=== PATIENT | male | born 1935 | race Caucasian/White ===

== ENCOUNTER 2023-05-04 14:56 | Inpatient (IN) | payer MEDICARE ==
[2023-05-04 15:33] LABS: #Basophils 0.1 thou/uL (0.0-0.2); #Eosinphils 0.2 thou/uL (0.0-0.7); #Monocytes 0.8 thou/uL (0.11-0.59); #Neutrophils 7.6 thou/uL (1.40-6.50); %Basophils 0.6 % (0.0-1.0); %Eosinophils 1.6 % (0.0-10.0); %Lymphocytes 7.9 % (21.0-51.0); %Monocytes 8.7 % (0.0-10.0); Hematocrit 36.3 % (42.0-52.0); Hemoglobin 11.3 g/dL (14.0-18.0); Mean Corpuscular HGB CONC 31.1 g/dL (32.0-36.0); Mean Corpuscular Hemoglobin 29.3 pg (27.0-31.0); Mean Platelet Volume 11.1 fL (7.4-10.4); Platelet Count 273 10x3/uL (130-400); RBC Distribution Width 16.3 % (11.5-14.5); Red Blood Cell (RBC) Count 3.86 mill/uL (4.70-6.10); White Blood Cell (WBC) Count 9.4 10x3/uL (4.8-10.8)
[2023-05-04 15:46] LABS: INR-International Normal Ratio 1.4; PTT 32.3 sec (22.9-36.1); Prothrombin Time 18.1 sec (12.0-14.7)
[2023-05-04 16:00] LABS: ALT (SGPT) 13 U/L (8-55); AST (SGOT) 19 U/L (5-34); Albumin 3.5 g/dL (3.4-4.8); Alkaline Phosphatase 123 U/L (40-110); Anion Gap 14 mmol/L (10-20); BUN (Urea Nitrogen) 59 mg/dL (8.4-25.7); Bilirubin, Total 0.4 mg/dL (0.2-1.2); Calc. Creatinine Clearance 0 mL/min (70-130); Calcium 9.6 mg/dL (7.8-10.44); Carbon Dioxide 31 mmol/L (23-31); Chloride 93 mmol/L (98-107); Estimated GFR 31; Globulin 2.8 g/dL (2.4-3.5); Glucose 190 mg/dL (83-110); Potassium 4.3 mmol/L (3.5-5.1); Protein, Total 6.3 g/dL (5.8-8.1); Sodium 134 mmol/L (136-145)
[2023-05-04 16:05] LABS: Troponin I 0.118 ng/mL (< 0.028)
[2023-05-04] MEDS ORDERED: Ondansetron ODT 4 MG TAB PO PRN (17:38)
[2023-05-04] MEDS ORDERED: Acetaminophen 325 MG TAB PO PRN (17:38)
[2023-05-04] MEDS ORDERED: Polyethylene Glycol 3350 17 GM Packet PO PRN (17:45)
[2023-05-04] MEDS ORDERED: Lidocaine 4% Patch TD PRN (18:00)
[2023-05-04] MEDS ORDERED: Melatonin 3 MG TAB PO PRN (18:00)
[2023-05-04 18:53] LABS: Troponin I 0.131 ng/mL (< 0.028)
[2023-05-04] MEDS: Tamsulosin HCl 0.4 MG CAP PO SCH (21:17)
[2023-05-04] MEDS: traZODone HCl 50 MG TAB PO SCH (21:18)
[2023-05-04] MEDS: Flecainide 50 MG TAB PO SCH (21:18)
[2023-05-04] MEDS: Apixaban 2.5 MG TAB PO SCH (21:18)
[2023-05-04] MEDS: Senokot S 8.6-50 MG TAB PO PRN (21:19)
[2023-05-04] MEDS: Sodium Chloride 0.9% 1,000 ML IV SCH (21:19)
[2023-05-04] MEDS: Acetaminophen/Codeine 30-300mg Tablet PO PRN (21:21)
[2023-05-04] MEDS: Acetaminophen 325 MG TAB PO SCH (21:21)
[2023-05-04 22:08] VITALS: BMI 25.9
[2023-05-05 01:12] LABS: Troponin I 0.151 ng/mL (< 0.028)
[2023-05-05] MEDS: Sodium Chloride 0.9% 1,000 ML IV SCH ×2 (02:00→05:42)
[2023-05-05 05:00] LABS: #Basophils 0.1 thou/uL (0.0-0.2); #Eosinphils 0.3 thou/uL (0.0-0.7); #Monocytes 0.8 thou/uL (0.11-0.59); #Neutrophils 6.3 thou/uL (1.40-6.50); %Basophils 0.6 % (0.0-1.0); %Eosinophils 3.4 % (0.0-10.0); %Lymphocytes 9.5 % (21.0-51.0); %Monocytes 9.6 % (0.0-10.0); %Neutrophils 76.7 % (42.0-75.0); Hematocrit 34.1 % (42.0-52.0); Hemoglobin 10.6 g/dL (14.0-18.0); Mean Corpuscular HGB CONC 31.1 g/dL (32.0-36.0); Mean Corpuscular Hemoglobin 29.3 pg (27.0-31.0); Mean Corpuscular Volume 94.2 fl (78.0-98.0); Mean Platelet Volume 11.3 fL (7.4-10.4); Platelet Count 260 10x3/uL (130-400); RBC Distribution Width 16.2 % (11.5-14.5); Red Blood Cell (RBC) Count 3.62 mill/uL (4.70-6.10); White Blood Cell (WBC) Count 8.2 10x3/uL (4.8-10.8)
[2023-05-05 05:10] LABS: ALT (SGPT) 10 U/L (8-55); AST (SGOT) 17 U/L (5-34); Alkaline Phosphatase 107 U/L (40-110); Anion Gap 16 mmol/L (10-20); BUN (Urea Nitrogen) 54 mg/dL (8.4-25.7); Bilirubin, Total 0.4 mg/dL (0.2-1.2); Calc. Creatinine Clearance 38 mL/min (70-130); Calcium 9.5 mg/dL (7.8-10.44); Carbon Dioxide 28 mmol/L (23-31); Chloride 95 mmol/L (98-107); Estimated GFR 38; Globulin 2.9 g/dL (2.4-3.5); Glucose 107 mg/dL (83-110); Potassium 3.5 mmol/L (3.5-5.1); Protein, Total 5.9 g/dL (5.8-8.1); Sodium 135 mmol/L (136-145)
[2023-05-05 05:21] LABS: Troponin I 0.135 ng/mL (< 0.028)
[2023-05-05] MEDS: Levothyroxine Sodium 25 MCG TAB PO SCH (05:43)
[2023-05-05] MEDS: Acetaminophen/Codeine 30-300mg Tablet PO PRN (05:43)
[2023-05-05] MEDS: Acetaminophen 325 MG TAB PO SCH ×3 (05:44→20:54)
[2023-05-05] MEDS ORDERED: Transdermal Patch Removal TOP PRN (06:00)
[2023-05-05] MEDS: Allopurinol 300 MG TAB PO SCH (08:59)
[2023-05-05] MEDS: Atorvastatin Calcium 40 MG TAB PO SCH (08:59)
[2023-05-05] MEDS: Flecainide 50 MG TAB PO SCH ×2 (08:59→20:54)
[2023-05-05] MEDS: Carvedilol 3.125 MG TAB PO SCH ×2 (08:59→16:43)
[2023-05-05] MEDS: Apixaban 2.5 MG TAB PO SCH ×2 (08:59→20:54)
[2023-05-05] MEDS: Tamsulosin HCl 0.4 MG CAP PO SCH (20:54)
[2023-05-05] MEDS: traZODone HCl 50 MG TAB PO SCH (20:54)
[2023-05-06 04:41] LABS: #Basophils 0.1 thou/uL (0.0-0.2); #Eosinphils 0.5 thou/uL (0.0-0.7); #Monocytes 0.8 thou/uL (0.11-0.59); #Neutrophils 5.3 thou/uL (1.40-6.50); %Basophils 0.8 % (0.0-1.0); %Lymphocytes 10.6 % (21.0-51.0); %Neutrophils 71.3 % (42.0-75.0); Hematocrit 33.6 % (42.0-52.0); Hemoglobin 10.4 g/dL (14.0-18.0); Mean Corpuscular Hemoglobin 29.1 pg (27.0-31.0); Mean Corpuscular Volume 93.9 fl (78.0-98.0); Mean Platelet Volume 11.5 fL (7.4-10.4); Platelet Count 255 10x3/uL (130-400); RBC Distribution Width 16.4 % (11.5-14.5); Red Blood Cell (RBC) Count 3.58 mill/uL (4.70-6.10); White Blood Cell (WBC) Count 7.5 10x3/uL (4.8-10.8)
[2023-05-06 05:05] LABS: ALT (SGPT) 10 U/L (8-55); AST (SGOT) 20 U/L (5-34); Albumin 2.9 g/dL (3.4-4.8); Alkaline Phosphatase 105 U/L (40-110); Anion Gap 13 mmol/L (10-20); BUN (Urea Nitrogen) 52 mg/dL (8.4-25.7); Bilirubin, Total 0.4 mg/dL (0.2-1.2); Calc. Creatinine Clearance 37 mL/min (70-130); Calcium 9.4 mg/dL (7.8-10.44); Carbon Dioxide 29 mmol/L (23-31); Chloride 96 mmol/L (98-107); Estimated GFR 36; Globulin 2.9 g/dL (2.4-3.5); Glucose 116 mg/dL (83-110); Potassium 3.8 mmol/L (3.5-5.1); Protein, Total 5.8 g/dL (5.8-8.1); Sodium 134 mmol/L (136-145)
[2023-05-06] MEDS: Acetaminophen 325 MG TAB PO SCH ×3 (05:28→20:32)
[2023-05-06] MEDS: Levothyroxine Sodium 25 MCG TAB PO SCH (05:28)
[2023-05-06] MEDS: Carvedilol 3.125 MG TAB PO SCH ×2 (08:22→17:08)
[2023-05-06] MEDS: Allopurinol 300 MG TAB PO SCH (08:22)
[2023-05-06] MEDS: Flecainide 50 MG TAB PO SCH ×2 (08:22→20:32)
[2023-05-06] MEDS: Atorvastatin Calcium 40 MG TAB PO SCH (08:22)
[2023-05-06] MEDS: Apixaban 2.5 MG TAB PO SCH ×2 (08:22→20:32)
[2023-05-06] MEDS: Acetaminophen/Codeine 30-300mg Tablet PO PRN ×2 (08:26→15:28)
[2023-05-06] MEDS: Senokot S 8.6-50 MG TAB PO PRN (08:26)
[2023-05-06] MEDS: Tamsulosin HCl 0.4 MG CAP PO SCH (20:32)
[2023-05-06] MEDS: traZODone HCl 50 MG TAB PO SCH (20:32)
[2023-05-06] MEDS: Senokot S 8.6-50 MG TAB PO SCH (20:32)
[2023-05-07 05:03] LABS: #Basophils 0.1 thou/uL (0.0-0.2); #Eosinphils 0.5 thou/uL (0.0-0.7); #Monocytes 0.8 thou/uL (0.11-0.59); #Neutrophils 4.9 thou/uL (1.40-6.50); %Basophils 0.8 % (0.0-1.0); %Eosinophils 6.3 % (0.0-10.0); %Lymphocytes 11.8 % (21.0-51.0); %Monocytes 11.6 % (0.0-10.0); %Neutrophils 69.1 % (42.0-75.0); Hematocrit 34.2 % (42.0-52.0); Hemoglobin 10.7 g/dL (14.0-18.0); Mean Corpuscular HGB CONC 31.3 g/dL (32.0-36.0); Mean Corpuscular Hemoglobin 29.2 pg (27.0-31.0); Mean Corpuscular Volume 93.2 fl (78.0-98.0); Mean Platelet Volume 11.8 fL (7.4-10.4); Platelet Count 253 10x3/uL (130-400); RBC Distribution Width 16.5 % (11.5-14.5); Red Blood Cell (RBC) Count 3.67 mill/uL (4.70-6.10); White Blood Cell (WBC) Count 7.1 10x3/uL (4.8-10.8)
[2023-05-07] MEDS: Acetaminophen 325 MG TAB PO SCH ×3 (05:12→21:31)
[2023-05-07] MEDS: Levothyroxine Sodium 25 MCG TAB PO SCH (05:12)
[2023-05-07 05:23] LABS: ALT (SGPT) 11 U/L (8-55); AST (SGOT) 18 U/L (5-34); Albumin 3.1 g/dL (3.4-4.8); Alkaline Phosphatase 109 U/L (40-110); Anion Gap 11 mmol/L (10-20); BUN (Urea Nitrogen) 49 mg/dL (8.4-25.7); Bilirubin, Total 0.3 mg/dL (0.2-1.2); Calc. Creatinine Clearance 31 mL/min (70-130); Calcium 9.7 mg/dL (7.8-10.44); Carbon Dioxide 32 mmol/L (23-31); Chloride 97 mmol/L (98-107); Estimated GFR 30; Globulin 2.9 g/dL (2.4-3.5); Glucose 122 mg/dL (83-110); Sodium 136 mmol/L (136-145)
[2023-05-07] MEDS ORDERED: Lactated Ringer's 500 ML IV SCH (10:00)
[2023-05-07] MEDS: Flecainide 50 MG TAB PO SCH ×2 (10:03→21:31)
[2023-05-07] MEDS: Carvedilol 3.125 MG TAB PO SCH ×2 (10:03→17:56)
[2023-05-07] MEDS: Allopurinol 300 MG TAB PO SCH (10:04)
[2023-05-07] MEDS: Atorvastatin Calcium 40 MG TAB PO SCH (10:04)
[2023-05-07] MEDS: Polyethylene Glycol 3350 17 GM Packet PO SCH (10:04)
[2023-05-07] MEDS: Apixaban 2.5 MG TAB PO SCH ×2 (10:04→21:31)
[2023-05-07] MEDS: Senokot S 8.6-50 MG TAB PO SCH ×2 (10:04→21:31)
[2023-05-07] MEDS: traZODone HCl 50 MG TAB PO SCH (21:31)
[2023-05-07] MEDS: Tamsulosin HCl 0.4 MG CAP PO SCH (21:31)
[2023-05-08 04:10] LABS: #Basophils 0.1 thou/uL (0.0-0.2); #Eosinphils 0.4 thou/uL (0.0-0.7); #Monocytes 0.9 thou/uL (0.11-0.59); #Neutrophils 5.8 thou/uL (1.40-6.50); %Basophils 0.6 % (0.0-1.0); %Eosinophils 4.6 % (0.0-10.0); %Lymphocytes 10.4 % (21.0-51.0); Hematocrit 32.6 % (42.0-52.0); Hemoglobin 10.3 g/dL (14.0-18.0); Mean Corpuscular HGB CONC 31.6 g/dL (32.0-36.0); Mean Corpuscular Hemoglobin 29.5 pg (27.0-31.0); Mean Corpuscular Volume 93.4 fl (78.0-98.0); Mean Platelet Volume 11.6 fL (7.4-10.4); Platelet Count 268 10x3/uL (130-400); RBC Distribution Width 16.6 % (11.5-14.5); Red Blood Cell (RBC) Count 3.49 mill/uL (4.70-6.10)
[2023-05-08 04:33] LABS: ALT (SGPT) 10 U/L (8-55); AST (SGOT) 19 U/L (5-34); Albumin 2.8 g/dL (3.4-4.8); Alkaline Phosphatase 108 U/L (40-110); Anion Gap 11 mmol/L (10-20); BUN (Urea Nitrogen) 50 mg/dL (8.4-25.7); Bilirubin, Total 0.3 mg/dL (0.2-1.2); Calc. Creatinine Clearance 39 mL/min (70-130); Calcium 9.7 mg/dL (7.8-10.44); Carbon Dioxide 32 mmol/L (23-31); Chloride 96 mmol/L (98-107); Estimated GFR 40; Globulin 2.9 g/dL (2.4-3.5); Glucose 142 mg/dL (83-110); Potassium 4.2 mmol/L (3.5-5.1); Protein, Total 5.7 g/dL (5.8-8.1); Sodium 135 mmol/L (136-145)
[2023-05-08] MEDS: Acetaminophen 325 MG TAB PO SCH ×3 (05:29→22:47)
[2023-05-08] MEDS: Levothyroxine Sodium 25 MCG TAB PO SCH (05:29)
[2023-05-08] MEDS: Carvedilol 3.125 MG TAB PO SCH ×2 (10:19→17:18)
[2023-05-08] MEDS: Flecainide 50 MG TAB PO SCH ×2 (10:19→20:52)
[2023-05-08] MEDS: Atorvastatin Calcium 40 MG TAB PO SCH (10:20)
[2023-05-08] MEDS: Polyethylene Glycol 3350 17 GM Packet PO SCH (10:20)
[2023-05-08] MEDS: Senokot S 8.6-50 MG TAB PO SCH ×2 (10:20→20:53)
[2023-05-08] MEDS: Apixaban 2.5 MG TAB PO SCH ×2 (10:20→20:53)
[2023-05-08] MEDS: Acetaminophen/Codeine 30-300mg Tablet PO PRN ×2 (14:59→20:52)
[2023-05-08] MEDS: traZODone HCl 50 MG TAB PO SCH (20:52)
[2023-05-08] MEDS: Tamsulosin HCl 0.4 MG CAP PO SCH (20:53)
[2023-05-09] MEDS: Acetaminophen/Codeine 30-300mg Tablet PO PRN ×3 (03:12→20:15)
[2023-05-09 04:08] LABS: #Basophils 0.1 thou/uL (0.0-0.2); #Eosinphils 0.4 thou/uL (0.0-0.7); #Monocytes 0.9 thou/uL (0.11-0.59); #Neutrophils 5.8 thou/uL (1.40-6.50); %Basophils 0.9 % (0.0-1.0); %Eosinophils 5.3 % (0.0-10.0); %Lymphocytes 9.3 % (21.0-51.0); %Monocytes 10.8 % (0.0-10.0); %Neutrophils 73.4 % (42.0-75.0); Hemoglobin 10.2 g/dL (14.0-18.0); Mean Corpuscular HGB CONC 30.9 g/dL (32.0-36.0); Mean Corpuscular Hemoglobin 28.7 pg (27.0-31.0); Mean Corpuscular Volume 92.7 fl (78.0-98.0); Mean Platelet Volume 11.6 fL (7.4-10.4); Platelet Count 258 10x3/uL (130-400); RBC Distribution Width 16.6 % (11.5-14.5); Red Blood Cell (RBC) Count 3.56 mill/uL (4.70-6.10); White Blood Cell (WBC) Count 7.9 10x3/uL (4.8-10.8)
[2023-05-09 04:34] LABS: Carbon Dioxide 31 mmol/L (23-31)
[2023-05-09 04:35] LABS: ALT (SGPT) 11 U/L (8-55); AST (SGOT) 19 U/L (5-34); Albumin 2.7 g/dL (3.4-4.8); Alkaline Phosphatase 102 U/L (40-110); BUN (Urea Nitrogen) 49 mg/dL (8.4-25.7); Bilirubin, Total 0.3 mg/dL (0.2-1.2); Calc. Creatinine Clearance 41 mL/min (70-130); Calcium 9.8 mg/dL (7.8-10.44); Chloride 97 mmol/L (98-107); Estimated GFR 42; Globulin 2.8 g/dL (2.4-3.5); Glucose 140 mg/dL (83-110); Potassium 4.3 mmol/L (3.5-5.1); Protein, Total 5.5 g/dL (5.8-8.1); Sodium 135 mmol/L (136-145)
[2023-05-09 04:40] LABS: Anion Gap 11 mmol/L (10-20)
[2023-05-09] MEDS: Acetaminophen 325 MG TAB PO SCH ×3 (05:27→22:55)
[2023-05-09] MEDS: Levothyroxine Sodium 25 MCG TAB PO SCH (05:32)
[2023-05-09 09:27] LABS: Hemoglobin A1c 6.1 % (4.0-6.0)
[2023-05-09] MEDS: Polyethylene Glycol 3350 17 GM Packet PO SCH (10:17)
[2023-05-09] MEDS: Atorvastatin Calcium 40 MG TAB PO SCH (10:17)
[2023-05-09] MEDS: Flecainide 50 MG TAB PO SCH ×2 (10:17→20:16)
[2023-05-09] MEDS: Allopurinol 100 MG TAB PO SCH (10:17)
[2023-05-09] MEDS: Apixaban 2.5 MG TAB PO SCH ×2 (10:17→20:16)
[2023-05-09] MEDS: Carvedilol 3.125 MG TAB PO SCH ×2 (10:17→16:30)
[2023-05-09] MEDS: Senokot S 8.6-50 MG TAB PO SCH ×3 (10:18→20:18)
[2023-05-09] MEDS: Tamsulosin HCl 0.4 MG CAP PO SCH (20:15)
[2023-05-09] MEDS: traZODone HCl 50 MG TAB PO SCH (20:15)
[2023-05-10] MEDS: Acetaminophen/Codeine 30-300mg Tablet PO PRN (04:22)
[2023-05-10 04:29] LABS: #Basophils 0.1 thou/uL (0.0-0.2); #Eosinphils 0.4 thou/uL (0.0-0.7); #Monocytes 0.7 thou/uL (0.11-0.59); #Neutrophils 5.6 thou/uL (1.40-6.50); %Basophils 0.8 % (0.0-1.0); %Eosinophils 4.7 % (0.0-10.0); %Lymphocytes 10.7 % (21.0-51.0); %Monocytes 9.6 % (0.0-10.0); %Neutrophils 73.8 % (42.0-75.0); Hemoglobin 10.7 g/dL (14.0-18.0); Mean Corpuscular HGB CONC 31.5 g/dL (32.0-36.0); Mean Corpuscular Hemoglobin 29.3 pg (27.0-31.0); Mean Corpuscular Volume 93.2 fl (78.0-98.0); Mean Platelet Volume 11.2 fL (7.4-10.4); Platelet Count 279 10x3/uL (130-400); RBC Distribution Width 16.5 % (11.5-14.5); Red Blood Cell (RBC) Count 3.65 mill/uL (4.70-6.10); White Blood Cell (WBC) Count 7.5 10x3/uL (4.8-10.8)
[2023-05-10 05:04] LABS: ALT (SGPT) 10 U/L (8-55); AST (SGOT) 20 U/L (5-34); Albumin 2.8 g/dL (3.4-4.8); Alkaline Phosphatase 108 U/L (40-110); Anion Gap 10 mmol/L (10-20); BUN (Urea Nitrogen) 41 mg/dL (8.4-25.7); Bilirubin, Total 0.4 mg/dL (0.2-1.2); Calc. Creatinine Clearance 52 mL/min (70-130); Carbon Dioxide 31 mmol/L (23-31); Chloride 99 mmol/L (98-107); Estimated GFR 55; Globulin 2.9 g/dL (2.4-3.5); Glucose 113 mg/dL (83-110); Protein, Total 5.7 g/dL (5.8-8.1); Sodium 136 mmol/L (136-145)
[2023-05-10] MEDS: Acetaminophen 325 MG TAB PO SCH ×3 (05:24→23:27)
[2023-05-10] MEDS: Levothyroxine Sodium 25 MCG TAB PO SCH (05:25)
[2023-05-10] MEDS ORDERED: Senokot S 8.6-50 MG TAB PO PRN (06:33)
[2023-05-10] MEDS ORDERED: Polyethylene Glycol 3350 17 GM Packet PO PRN (06:33)
[2023-05-10] MEDS: Apixaban 2.5 MG TAB PO SCH ×2 (08:55→21:36)
[2023-05-10] MEDS: Flecainide 50 MG TAB PO SCH ×2 (08:55→21:37)
[2023-05-10] MEDS: Atorvastatin Calcium 40 MG TAB PO SCH (08:55)
[2023-05-10] MEDS: Carvedilol 3.125 MG TAB PO SCH ×2 (08:55→18:28)
[2023-05-10] MEDS ORDERED: Simethicone Chewable 80 MG TAB PO PRN (11:35)
[2023-05-10] MEDS: Tamsulosin HCl 0.4 MG CAP PO SCH (21:37)
[2023-05-10] MEDS: traZODone HCl 50 MG TAB PO SCH (21:37)
[2023-05-11] MEDS: Acetaminophen/Codeine 30-300mg Tablet PO PRN (01:40)
[2023-05-11] MEDS ORDERED: Scopolamine 1.5 mg/72 hour Patch TD SCH (05:00)
[2023-05-11] MEDS: Acetaminophen 325 MG TAB PO SCH ×3 (06:02→20:08)
[2023-05-11] MEDS: Levothyroxine Sodium 25 MCG TAB PO SCH (06:04)
[2023-05-11] MEDS: Flecainide 50 MG TAB PO SCH ×2 (09:24→20:07)
[2023-05-11] MEDS: Atorvastatin Calcium 40 MG TAB PO SCH (09:24)
[2023-05-11] MEDS: Carvedilol 3.125 MG TAB PO SCH ×2 (09:25→17:20)
[2023-05-11] MEDS: Allopurinol 100 MG TAB PO SCH (09:25)
[2023-05-11] MEDS: Apixaban 2.5 MG TAB PO SCH ×2 (09:26→20:07)
[2023-05-11] MEDS: Senokot S 8.6-50 MG TAB PO SCH (20:07)
[2023-05-11] MEDS: Tamsulosin HCl 0.4 MG CAP PO SCH (20:07)
[2023-05-11] MEDS: traZODone HCl 50 MG TAB PO SCH (20:08)
[2023-05-12] MEDS: Levothyroxine Sodium 25 MCG TAB PO SCH (05:53)
[2023-05-12] MEDS: Acetaminophen 325 MG TAB PO SCH ×3 (05:53→23:00)
[2023-05-12 06:50] LABS: Anion Gap 10 mmol/L (10-20); BUN (Urea Nitrogen) 35 mg/dL (8.4-25.7); Calc. Creatinine Clearance 62 mL/min (70-130); Calcium 10.4 mg/dL (7.8-10.44); Carbon Dioxide 34 mmol/L (23-31); Chloride 99 mmol/L (98-107); Estimated GFR 68; Glucose 133 mg/dL (83-110); Potassium 3.6 mmol/L (3.5-5.1); Sodium 139 mmol/L (136-145)
[2023-05-12] MEDS ORDERED: Polyethylene Glycol 3350 17 GM Packet PO SCH (09:00)
[2023-05-12] MEDS: Senokot S 8.6-50 MG TAB PO SCH (09:17)
[2023-05-12] MEDS: Carvedilol 3.125 MG TAB PO SCH ×2 (09:17→18:27)
[2023-05-12] MEDS: Flecainide 50 MG TAB PO SCH ×2 (09:17→19:59)
[2023-05-12] MEDS: Atorvastatin Calcium 40 MG TAB PO SCH (09:17)
[2023-05-12] MEDS: Apixaban 2.5 MG TAB PO SCH ×2 (09:19→19:59)
[2023-05-12] MEDS ORDERED: Polyethylene Glycol 3350 17 GM Packet PO PRN (15:51)
[2023-05-12] MEDS: Tamsulosin HCl 0.4 MG CAP PO SCH (19:59)
[2023-05-12] MEDS: traZODone HCl 50 MG TAB PO SCH (19:59)
[2023-05-13] MEDS: Levothyroxine Sodium 25 MCG TAB PO SCH (05:29)
[2023-05-13] MEDS: Acetaminophen 325 MG TAB PO SCH ×3 (05:33→21:02)
[2023-05-13] MEDS: Apixaban 2.5 MG TAB PO SCH ×2 (08:46→21:02)
[2023-05-13] MEDS: Allopurinol 100 MG TAB PO SCH (08:46)
[2023-05-13] MEDS: Flecainide 50 MG TAB PO SCH ×2 (08:46→21:02)
[2023-05-13] MEDS: Atorvastatin Calcium 40 MG TAB PO SCH (08:47)
[2023-05-13] MEDS: Carvedilol 3.125 MG TAB PO SCH ×2 (08:47→17:06)
[2023-05-13] MEDS ORDERED: Iopamidol-370 76% 500 ML MDV (1 ML CHARGE) ONE (09:09)
[2023-05-13] MEDS: traZODone HCl 50 MG TAB PO SCH (21:03)
[2023-05-13] MEDS: Tamsulosin HCl 0.4 MG CAP PO SCH (21:03)
[2023-05-13] MEDS ORDERED: Scopolamine 1.5 mg/72 hour Patch TD SCH (23:45)
[2023-05-14] MEDS: Acetaminophen 325 MG TAB PO SCH ×3 (05:18→22:06)
[2023-05-14] MEDS: Levothyroxine Sodium 25 MCG TAB PO SCH (05:19)
[2023-05-14 06:42] LABS: #Monocytes 0.5 thou/uL (0.11-0.59); #Neutrophils 10.3 thou/uL (1.40-6.50); %Basophils 0.2 % (0.0-1.0); %Eosinophils 0.1 % (0.0-10.0); %Lymphocytes 5.4 % (21.0-51.0); %Monocytes 4.3 % (0.0-10.0); %Neutrophils 89.5 % (42.0-75.0); Hematocrit 37.9 % (42.0-52.0); Hemoglobin 11.6 g/dL (14.0-18.0); Mean Corpuscular HGB CONC 30.6 g/dL (32.0-36.0); Mean Corpuscular Volume 94.8 fl (78.0-98.0); Mean Platelet Volume 11.4 fL (7.4-10.4); Platelet Count 280 10x3/uL (130-400); RBC Distribution Width 16.8 % (11.5-14.5); White Blood Cell (WBC) Count 11.5 10x3/uL (4.8-10.8)
[2023-05-14 07:31] LABS: ALT (SGPT) 16 U/L (8-55); AST (SGOT) 24 U/L (5-34); Albumin 3.1 g/dL (3.4-4.8); Alkaline Phosphatase 102 U/L (40-110); Anion Gap 14 mmol/L (10-20); BUN (Urea Nitrogen) 37 mg/dL (8.4-25.7); Bilirubin, Total 0.5 mg/dL (0.2-1.2); Calc. Creatinine Clearance 51 mL/min (70-130); Calcium 10.3 mg/dL (7.8-10.44); Carbon Dioxide 32 mmol/L (23-31); Chloride 94 mmol/L (98-107); Estimated GFR 54; Globulin 3.1 g/dL (2.4-3.5); Glucose 146 mg/dL (83-110); Potassium 4.3 mmol/L (3.5-5.1); Protein, Total 6.2 g/dL (5.8-8.1); Sodium 136 mmol/L (136-145)
[2023-05-14] MEDS: Flecainide 50 MG TAB PO SCH ×2 (09:23→22:05)
[2023-05-14] MEDS: Carvedilol 3.125 MG TAB PO SCH ×2 (09:23→16:38)
[2023-05-14] MEDS: Atorvastatin Calcium 40 MG TAB PO SCH (09:23)
[2023-05-14] MEDS: Apixaban 2.5 MG TAB PO SCH ×2 (09:23→22:05)
[2023-05-14] MEDS ORDERED: Iopamidol-370 76% 500 ML MDV (1 ML CHARGE) ONE (10:29)
[2023-05-14] MEDS: Tamsulosin HCl 0.4 MG CAP PO SCH (22:05)
[2023-05-14] MEDS: traZODone HCl 50 MG TAB PO SCH (22:35)
[2023-05-15] MEDS: Levothyroxine Sodium 25 MCG TAB PO SCH (06:17)
[2023-05-15] MEDS: Acetaminophen 325 MG TAB PO SCH ×3 (06:17→20:11)
[2023-05-15] MEDS: Atorvastatin Calcium 40 MG TAB PO SCH (08:12)
[2023-05-15] MEDS: Flecainide 50 MG TAB PO SCH ×2 (08:12→20:12)
[2023-05-15] MEDS: Carvedilol 3.125 MG TAB PO SCH ×2 (08:12→18:13)
[2023-05-15] MEDS: Allopurinol 100 MG TAB PO SCH (08:12)
[2023-05-15] MEDS: Apixaban 2.5 MG TAB PO SCH ×2 (08:13→20:12)
[2023-05-15 10:28] LABS: #Eosinphils 0.1 thou/uL (0.0-0.7); #Neutrophils 9.8 thou/uL (1.40-6.50); %Basophils 0.3 % (0.0-1.0); %Eosinophils 1.1 % (0.0-10.0); %Lymphocytes 8.1 % (21.0-51.0); %Monocytes 8.1 % (0.0-10.0); %Neutrophils 81.9 % (42.0-75.0); Hematocrit 37.3 % (42.0-52.0); Hemoglobin 11.6 g/dL (14.0-18.0); Mean Corpuscular HGB CONC 31.1 g/dL (32.0-36.0); Mean Corpuscular Hemoglobin 29.7 pg (27.0-31.0); Mean Corpuscular Volume 95.6 fl (78.0-98.0); Mean Platelet Volume 11.1 fL (7.4-10.4); Platelet Count 239 10x3/uL (130-400); RBC Distribution Width 16.8 % (11.5-14.5); White Blood Cell (WBC) Count 11.9 10x3/uL (4.8-10.8)
[2023-05-15 10:51] LABS: Anion Gap 12 mmol/L (10-20); BUN (Urea Nitrogen) 39 mg/dL (8.4-25.7); Calc. Creatinine Clearance 47 mL/min (70-130); Calcium 10.4 mg/dL (7.8-10.44); Carbon Dioxide 35 mmol/L (23-31); Chloride 94 mmol/L (98-107); Estimated GFR 49; Glucose 137 mg/dL (83-110); Potassium 3.8 mmol/L (3.5-5.1); Sodium 137 mmol/L (136-145)
[2023-05-15 14:26] LABS: Bilirubin Negative (Negative); Blood, Urine Negative (Negative); Clarity Clear (Clear); Glucose, Urine (Dipstick) Normal (Negative); Ketone, Urine Negative (Negative); Leukocyte Negative Leu/uL (Negative); Nitrite Negative (Negative); Protein, Urine (Dipstick) 10 mg/dL (Neg-Trace)
[2023-05-15] MEDS: traZODone HCl 50 MG TAB PO SCH (20:11)
[2023-05-15] MEDS: Tamsulosin HCl 0.4 MG CAP PO SCH (20:12)
[2023-05-16] MEDS: Levothyroxine Sodium 25 MCG TAB PO SCH (05:16)
[2023-05-16] MEDS: Acetaminophen 325 MG TAB PO SCH ×3 (05:16→21:06)
[2023-05-16 06:55] LABS: #Basophils 0.1 thou/uL (0.0-0.2); #Eosinphils 0.3 thou/uL (0.0-0.7); #Monocytes 1.1 thou/uL (0.11-0.59); #Neutrophils 10.6 thou/uL (1.40-6.50); %Basophils 0.5 % (0.0-1.0); %Eosinophils 2.5 % (0.0-10.0); %Lymphocytes 7.9 % (21.0-51.0); %Monocytes 8.6 % (0.0-10.0); %Neutrophils 80.1 % (42.0-75.0); Hematocrit 40.3 % (42.0-52.0); Hemoglobin 12.4 g/dL (14.0-18.0); Mean Corpuscular HGB CONC 30.8 g/dL (32.0-36.0); Mean Corpuscular Hemoglobin 28.5 pg (27.0-31.0); Mean Platelet Volume 11.4 fL (7.4-10.4); Platelet Count 231 10x3/uL (130-400); RBC Distribution Width 16.7 % (11.5-14.5); Red Blood Cell (RBC) Count 4.35 mill/uL (4.70-6.10); White Blood Cell (WBC) Count 13.2 10x3/uL (4.8-10.8)
[2023-05-16 07:08] LABS: Mean Corpuscular Volume 92.6 fl (78.0-98.0)
[2023-05-16 07:29] LABS: ALT (SGPT) 11 U/L (8-55); AST (SGOT) 21 U/L (5-34); Albumin 3.2 g/dL (3.4-4.8); Alkaline Phosphatase 107 U/L (40-110); Anion Gap 9 mmol/L (10-20); BUN (Urea Nitrogen) 46 mg/dL (8.4-25.7); Bilirubin, Total 0.7 mg/dL (0.2-1.2); Calc. Creatinine Clearance 50 mL/min (70-130); Calcium 10.5 mg/dL (7.8-10.44); Carbon Dioxide 36 mmol/L (23-31); Chloride 95 mmol/L (98-107); Estimated GFR 53; Globulin 2.9 g/dL (2.4-3.5); Glucose 120 mg/dL (83-110); Potassium 4.1 mmol/L (3.5-5.1); Protein, Total 6.1 g/dL (5.8-8.1); Sodium 136 mmol/L (136-145)
[2023-05-16] MEDS: Flecainide 50 MG TAB PO SCH ×2 (08:48→21:03)
[2023-05-16] MEDS: Atorvastatin Calcium 40 MG TAB PO SCH (08:48)
[2023-05-16] MEDS: Apixaban 2.5 MG TAB PO SCH ×2 (08:48→21:04)
[2023-05-16] MEDS: Carvedilol 3.125 MG TAB PO SCH ×2 (08:48→17:23)
[2023-05-16] MEDS: Tamsulosin HCl 0.4 MG CAP PO SCH (21:03)
[2023-05-16] MEDS: traZODone HCl 50 MG TAB PO SCH (21:04)
[2023-05-16] MEDS: Melatonin 3 MG TAB PO SCH (21:04)
[2023-05-16] MEDS: Senokot S 8.6-50 MG TAB PO PRN (21:05)
[2023-05-17] MEDS: Acetaminophen 325 MG TAB PO SCH ×2 (05:13→15:14)
[2023-05-17] MEDS: Levothyroxine Sodium 25 MCG TAB PO SCH (05:13)
[2023-05-17 07:53] LABS: #Basophils 0.1 thou/uL (0.0-0.2); #Eosinphils 0.4 thou/uL (0.0-0.7); #Neutrophils 8.9 thou/uL (1.40-6.50); %Basophils 0.4 % (0.0-1.0); %Eosinophils 3.5 % (0.0-10.0); %Lymphocytes 8.4 % (21.0-51.0); %Monocytes 8.8 % (0.0-10.0); %Neutrophils 78.5 % (42.0-75.0); Hematocrit 34.7 % (42.0-52.0); Hemoglobin 10.7 g/dL (14.0-18.0); Mean Corpuscular HGB CONC 30.8 g/dL (32.0-36.0); Mean Corpuscular Hemoglobin 29.3 pg (27.0-31.0); Mean Corpuscular Volume 95.1 fl (78.0-98.0); Mean Platelet Volume 11.6 fL (7.4-10.4); Platelet Count 184 10x3/uL (130-400); RBC Distribution Width 16.9 % (11.5-14.5); Red Blood Cell (RBC) Count 3.65 mill/uL (4.70-6.10); White Blood Cell (WBC) Count 11.4 10x3/uL (4.8-10.8)
[2023-05-17] MEDS: Carvedilol 3.125 MG TAB PO SCH ×2 (08:33→18:20)
[2023-05-17] MEDS: Flecainide 50 MG TAB PO SCH ×2 (08:33→20:46)
[2023-05-17] MEDS: Allopurinol 100 MG TAB PO SCH (08:33)
[2023-05-17] MEDS: Apixaban 2.5 MG TAB PO SCH ×2 (08:33→20:46)
[2023-05-17] MEDS: Atorvastatin Calcium 40 MG TAB PO SCH (08:33)
[2023-05-17] MEDS: Tamsulosin HCl 0.4 MG CAP PO SCH (20:46)
[2023-05-17] MEDS: traZODone HCl 50 MG TAB PO SCH (20:46)
[2023-05-17] MEDS: Senokot S 8.6-50 MG TAB PO PRN (20:47)
[2023-05-18] MEDS: Acetaminophen 325 MG TAB PO SCH ×4 (00:15→20:53)
[2023-05-18] MEDS: Melatonin 3 MG TAB PO SCH ×2 (00:15→20:53)
[2023-05-18] MEDS: Levothyroxine Sodium 25 MCG TAB PO SCH (08:01)
[2023-05-18] MEDS: Carvedilol 3.125 MG TAB PO SCH ×2 (08:01→17:55)
[2023-05-18] MEDS: Flecainide 50 MG TAB PO SCH ×2 (08:01→20:52)
[2023-05-18] MEDS: Apixaban 2.5 MG TAB PO SCH ×2 (08:01→20:53)
[2023-05-18] MEDS: Atorvastatin Calcium 40 MG TAB PO SCH (08:01)
[2023-05-18 08:22] LABS: #Basophils 0.1 thou/uL (0.0-0.2); #Eosinphils 0.3 thou/uL (0.0-0.7); #Monocytes 1.2 thou/uL (0.11-0.59); #Neutrophils 8.4 thou/uL (1.40-6.50); %Basophils 0.9 % (0.0-1.0); %Lymphocytes 9.8 % (21.0-51.0); %Monocytes 10.6 % (0.0-10.0); %Neutrophils 75.3 % (42.0-75.0); Hematocrit 39.3 % (42.0-52.0); Hemoglobin 11.9 g/dL (14.0-18.0); Mean Corpuscular HGB CONC 30.3 g/dL (32.0-36.0); Mean Corpuscular Hemoglobin 29.1 pg (27.0-31.0); Mean Corpuscular Volume 96.1 fl (78.0-98.0); Mean Platelet Volume 12.3 fL (7.4-10.4); Platelet Count 177 10x3/uL (130-400); RBC Distribution Width 17.6 % (11.5-14.5); Red Blood Cell (RBC) Count 4.09 mill/uL (4.70-6.10); White Blood Cell (WBC) Count 11.1 10x3/uL (4.8-10.8)
[2023-05-18 08:38] LABS: ALT (SGPT) 8 U/L (8-55); AST (SGOT) 19 U/L (5-34); Albumin 2.9 g/dL (3.4-4.8); Alkaline Phosphatase 106 U/L (40-110); Anion Gap 13 mmol/L (10-20); BUN (Urea Nitrogen) 38 mg/dL (8.4-25.7); Bilirubin, Total 0.5 mg/dL (0.2-1.2); Calc. Creatinine Clearance 51 mL/min (70-130); Carbon Dioxide 29 mmol/L (23-31); Chloride 100 mmol/L (98-107); Estimated GFR 53; Globulin 2.7 g/dL (2.4-3.5); Glucose 86 mg/dL (83-110); Potassium 4.5 mmol/L (3.5-5.1); Protein, Total 5.6 g/dL (5.8-8.1); Sodium 137 mmol/L (136-145)
[2023-05-18] MEDS: Tamsulosin HCl 0.4 MG CAP PO SCH (20:52)
[2023-05-18] MEDS: Senokot S 8.6-50 MG TAB PO PRN (20:52)
[2023-05-18] MEDS: traZODone HCl 50 MG TAB PO SCH (20:52)
[2023-05-19] MEDS: Levothyroxine Sodium 25 MCG TAB PO SCH (06:02)
[2023-05-19] MEDS: Acetaminophen 325 MG TAB PO SCH ×2 (06:06→14:06)
[2023-05-19] MEDS: Carvedilol 3.125 MG TAB PO SCH (08:33)
[2023-05-19] MEDS: Allopurinol 100 MG TAB PO SCH (08:33)
[2023-05-19] MEDS: Atorvastatin Calcium 40 MG TAB PO SCH (08:33)
[2023-05-19] MEDS: Flecainide 50 MG TAB PO SCH (08:34)
[2023-05-19] MEDS: Apixaban 2.5 MG TAB PO SCH (08:34)
[2023-05-19 08:53] VITALS: TEMP 97.6
[2023-05-19] MEDS ORDERED: Polyethylene Glycol 3350 17 GM Packet PO SCH (09:00)
[2023-05-19 15:10] VITALS: BP 90/52
== END 2023-05-19 16:17 | disposition swing bed (61) | DRG 562 ==
LOC: ERS 14:56 → 2NO 16:52 → T4-B 05-10 14:44
PROVIDERS: ADMIT Family Medicine; ATTEND Family Medicine
DX: S42.201A Unspecified fracture of upper end of right humerus, initial encounter for closed fracture (principal); S32.454A Nondisplaced transverse fracture of right acetabulum, initial encounter for closed fracture; S22.089A Unspecified fracture of T11-T12 vertebra, initial encounter for closed fracture; J96.11 Chronic respiratory failure with hypoxia; I50.32 Chronic diastolic (congestive) heart failure; I69.354 Hemiplegia and hemiparesis following cerebral infarction affecting left non-dominant side; I13.0 Hypertensive heart and chronic kidney disease with heart failure and stage 1 through stage 4 chronic kidney disease, or unspecified chronic kidney disease; N17.9 Acute kidney failure, unspecified; E87.1 Hypo-osmolality and hyponatremia; M97.01XA Periprosthetic fracture around internal prosthetic right hip joint, initial encounter; I25.10 Atherosclerotic heart disease of native coronary artery without angina pectoris; Z66 Do not resuscitate; F41.1 Generalized anxiety disorder; E03.9 Hypothyroidism, unspecified; E78.5 Hyperlipidemia, unspecified; G47.33 Obstructive sleep apnea (adult) (pediatric); M19.90 Unspecified osteoarthritis, unspecified site; N18.9 Chronic kidney disease, unspecified; E11.22 Type 2 diabetes mellitus with diabetic chronic kidney disease; G47.00 Insomnia, unspecified; N40.0 Benign prostatic hyperplasia without lower urinary tract symptoms; M10.9 Gout, unspecified; W18.30XA Fall on same level, unspecified, initial encounter; R77.8 Other specified abnormalities of plasma proteins; R53.81 Other malaise; L89.151 Pressure ulcer of sacral region, stage 1; G89.29 Other chronic pain; I25.2 Old myocardial infarction; K63.89 Other specified diseases of intestine; R41.0 Disorientation, unspecified; R44.1 Visual hallucinations; I45.81 Long QT syndrome; R55 Syncope and collapse; M89.58 Osteolysis, other site; K59.00 Constipation, unspecified; I48.91 Unspecified atrial fibrillation; Z96.641 Presence of right artificial hip joint; Z88.8 Allergy status to other drugs, medicaments and biological substances; Z79.899 Other long term (current) drug therapy; Z98.890 Other specified postprocedural states; Z82.49 Family history of ischemic heart disease and other diseases of the circulatory system; Z99.3 Dependence on wheelchair; Z83.3 Family history of diabetes mellitus; Z87.891 Personal history of nicotine dependence; Z90.49 Acquired absence of other specified parts of digestive tract; Z98.41 Cataract extraction status, right eye; Z98.42 Cataract extraction status, left eye; Z95.810 Presence of automatic (implantable) cardiac defibrillator
CPT/HCPCS: 36415; 36416; 70450; 71045; 71260; 72125; 72170; 74018; 74177; 80048; 80053; 81003; 83036; 84145; 84484; 85025; 85610; 85730; 86850; 86900; 86901; 87040; 93005; 93010; 96360; 96361; J7050; J7120; Q9967